=== PATIENT | male | born 1975 | race Caucasian/White ===

== ENCOUNTER 2025-05-26 15:01 | Outpatient (REF) | payer OTHER, SELFPAY ==
[2025-05-26 17:28] LABS: Anion Gap 16 (12-20); Blood Urea Nitrogen 21 mg/dL (9-16); Calcium 9.2 mg/dL (8.4-10.2); Carbon Dioxide 27 mmol/L (22-29); Chloride 104 mmol/L (96-108); Estimated Glomerular Filt Rate > 60; Potassium 3.8 mmol/L (3.3-5.1); Sodium 143 mmol/L (135-145)
== END 2025-05-26 15:02 | disposition home or self-care (01) ==
LOC: HO.LAB 15:01
PROVIDERS: PCP Family Medicine; Visit Provider Registered Nurse
DX: R42 Dizziness and giddiness (principal); G43.909 Migraine, unspecified, not intractable, without status migrainosus; I10 Essential (primary) hypertension; F41.9 Anxiety disorder, unspecified; F32.A Depression, unspecified; Z79.899 Other long term (current) drug therapy
CPT/HCPCS: 36415; 80048; 99202

== ENCOUNTER 2025-05-26 15:01 | Outpatient (AMB) | payer OTHER, SELFPAY ==
--- OUTSIDE RECORDS SUMMARY | 2025-05-26 15:06 | XMS_ITS | Clinical Summary ---
Author Organization [facility] Address [address] [place] [address] Care Team Providers Care Document Imaging Specialist Name Role Phone Art Hurd DO Primary Care Provider Social History Tobacco Use Types Packs/Day Years Used Date Smoking Tobacco: Never Assessed Sex and Gender Information Value Date Recorded Sex Assigned at Not on file Gender Identity Not on file Sexual Orientation Not on file Job Start Date Occupation Industry Not on file Not on file Not on file Plan of Treatment Health Maintenance Due Date Last Done Comments Hepatitis B Vaccines (1 of 3 - 3-dose series) 1975 Hepatitis C Screening 1975 COVID-19 Vaccine (#1) 1975 Depression Screening 1987 Preventative Health Evaluation 1993 DTap / Tdap / Td (1 - Tdap) 1994 Colon Cancer Screening (Colonoscopy) 2020 Shingrix-Zoster Vaccine (1 of 2) 2025 Influenza Vaccine (#1) 2025 11/23/2019 Pneumococcal Vaccine Aged Out No long er eligible based on patient's age to complete this topic RSV Ped < 20 months Aged Out No longe r eligible based on patient's age to complete this topic Care Teams Document Imaging Specialist Relationship Specialty Start Date End Date Art Hurd DO [address] [place] [id number] PCP - General Search Engine Optimization Consultant 02/21/22
--- OUTSIDE RECORDS SUMMARY | 2025-05-26 15:06 | XMS_ITS | Encounter Summary ---
Author Organization [facility] Address [address] [place] [address] Care Team Providers Care Paper Goods Machine Operator Name Role Phone Sadia Bird MD Primary Care Provider Reason for Visit * Reason Onset Date Comments Dizziness 12/29/2024 Encounter Details Date Type Department Care Team (Late st Contact Info) Description 12/29/2024 Nurse Triage Adult Medicine - [place] [address] [place] [phone] Sadia Bird MD [address] [place] [address] Dizziness Social History Tobacco Use Types Packs/Day Years Used Date Smoking Tobacco: Former Smokeless Tobacco: Former Alcohol Use Standard Drinks/Week Comments Yes 0 (1 standard drink = 0.6 oz pur e alcohol) Sex and Gender Information Value Date Recorded Sex Assigned at Not on file Legal Sex Male 1:21 PM EST Gender Identity Not on file Sexual Orientation Not on file documented as of this encounter Progress Notes * Carlos Osman RN - 12/29/2024 2:25 PM EST Reason for Disposition ??? 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 DESCRIPTION: Describe your dizziness. No room spinning mor lightheaded 2. LIGHTHEADED: Do you feel lightheaded? (e.g., somewhat faint, woozy, weak upon standing) Lightheaded upon standing 3. VERTIGO: Do you feel like either you or the room is spinning or tilting? (i.e., vertigo) no 4. SEVERITY: How bad is it? Do you feel like you are going to faint? Can you stand and walk? - MILD: Feels slightly dizzy, but walking normally. - MODERATE: Feels unsteady when walking, but not falling; interferes with normal activities (e.g., school, work). - SEVERE: Unable to walk without falling, or requires assistance to walk without falling; feels like passing out now. mild 5. ONSET: When did the dizziness begin? Few days ago 6. AGGRAVATING FACTORS: Does anything make it worse? (e.g., standing, change in head position) stress 7. HEART RATE: Can you tell me your heart rate? How many beats in 15 seconds? (Note: Not all patients can do this.) unknown 8. CAUSE: What do you think is causing the dizziness? (e.g., decreased fluids or food, diarrhea, emotional distress, heat exposure, new medicine, sudden standing, vomiting; unknown) Stress , pt has a lot of stress at work and also has stopped saboxone 9. RECURRENT SYMPTOM: Have you had dizziness before? If Yes, ask: When was the last time? Whathappened that time? Not reoccurring 10. OTHER SYMPTOMS: Do you have any other symptoms? (e.g., fever, chest pain, vomiting, diarrhea,bleeding) stress 11. : Is there any chance you are ? When was your last menstrual period? male Protocols used: Dizziness - [id number] * Ian Orlando - 12/29/2024 2:01 PM EST Patient call requires triage: Symptoms patient is presenting: dizziness, fatigue, has bees stressed lately, BP today 156/89; at night pulsation in the had; heart beating too fast. Symptoms are more concerning lately. Please advise How long has patient had these symptoms?: had this for couple of months For ALL patients calling to schedule any appointment (routine, sick visit, follow up, consult, etc.) in the outpatient setting please ask the following questions: Do you have fever of higher than 101, sore throat with difficulty swallowing or severe shortness ofbreath? no Third Green Party Information: not applicable PCP: Sadia Bird MD Payor: [facility] / Plan: [facility] MEDICAID / Product Type: *No Product type* / documented in this encounter Plan of Treatment Upcoming Encounters Date Type Department Care Team (Late st Contact Info) Description 06/28/2025 2:30 PM EDT Office Visit Adult Medicine [facility] [address] [place] [address] Lala Manning PA [address] [place] [address] 07/07/2025 3:45 PM EDT Office Visit Pulmonolgy - [place] [facility] [address] [place] [phone] Hugo Grady MD [address] [facility] [address] [place] [address] 08/01/2025 4:15 PM EDT Office Visit General Surgery [facility] [address] [facility] [address] [place] [phone] Perez Austin MD 175 [facility] [address] [place] [address] documented as of this encounter Visit Diagnoses Not on filedocumented in this encounter Care Teams Paper Goods Machine Operator Relationship Specialty Start Date End Date Sadia Bird MD [address] [place] [address] PCP - General 06/24/23 documented as of this encounter
--- NOTE | 2025-05-26 15:37 | A.OFFVIS_ITS ---
Vital Signs 05/26/25 15:50 05/26/25 15:51 BP 154/95 H 150/91 H Position Sitting Standing Pulse 88 93 Intake Visit Reasons: OZUNA with dizziness Allergies No Known Allergies Allergy (Verified 05/26/25 15:40) Medication List - Last Reconciled 05/26/25 by Monika Mccann CNP lisinopril 40 mg PO DAILY pantoprazole 20 mg PO DAILY sertraline (Zoloft) 50 mg PO DAILY HPI Comments Details: 50-year-old man with depression, hypertension, and ALEX (currently not using CPAP), here for headaches and dizziness which started about 1 year ago. Headache was there almost every day, which he described as generalized pressure all over head. Some days were worse than others. He also had dizziness, which he described as a lightheaded, foggy-type feeling. It was worse at times than others, but no specific trigger identified. He noted some ringing in both ears which started around the same time. It was worse at night or when it was quiet. 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 He was under considerable amount of stress related to work. Sleep was up and down. No falls. No history of head trauma. Blood pressure was not well-controlled despite increase in lisinopril dose about 2 months ago. [facility] Family History (Updated 05/26/25 @ 17:07 by Monika Mccann CNP) Mother Hypertension Daughter Seizures Social History (Updated 05/26/25 @ 17:06 by Monika Mccann CNP) Alcohol intake: current Comment: 2x/week Patient Tobacco Use Status: Never used Tobacco Review of Systems Const Denies chills, Denies daytime sleepiness, Reports difficulty sleeping, Reports fatigue, Denies fever(s), Denies frequent falls, Reports headache(s), Denies increased appetite, Denies poor appetite, Denies snoring, Denies weakness, Denies weight gain and Denies weight loss Eyes Denies blurry vision, Denies diplopia and Denies loss of vision ENT Denies vertigo, Reports dizziness, Denies dry mouth, Denies otalgia, Reports headache(s), Denies hearing loss, Denies epistaxis, Denies nasal congestion, Denies neck pain, Denies tinnitus, Denies sinus pain and Denies sore throat Card Denies chest pain at rest, Denies chest pain with activity, Denies syncope, Denies leg edema, Denies palpitations, Denies dyspnea and Denies dyspnea on exertion Resp Denies cough, Denies dyspnea, Denies dyspnea on exertion and Denies snoring GI Denies abdominal pain, Denies constipation, Reports heartburn, Denies diarrhea, Denies nausea and Denies vomiting Denies urinary frequency, Denies urinary incontinence and Denies urinary urgency Musc Denies abnormal gait, Denies back pain, Denies myalgias, Denies arthralgias, Denies neck pain, Denies numbness, Denies stiffness and Denies tingling Skin/Breast Denies breast mass, Denies nipple discharge and Denies rash Neuro Denies abnormal gait, Denies vertigo, Reports dizziness, Denies syncope, Denies frequent falls, Reports headache(s), Denies lack of coordination, Denies loss of vision, Denies memory loss, Denies numbness, Denies Other visual disturbances, Denies restless legs, Denies seizure-like activity, Denies tingling, Denies paresthesias, Denies tremor(s) and Denies weakness Psych Reports anxiety, Reports depression, Denies memory loss, Denies visual hallucinations and Denies hallucinations Endo Denies cold intolerance, Reports fatigue, Denies heat intolerance, Denies polydipsia, Denies polyuria and Denies palpitations Roni/Lymph Reports easy bleeding and Reports easy bruising Physical Exam Const Other: General Appearance:? normal, in no acute distress. Head:? normocephalic, atraumatic. Eyes:? sclera non-icteric, conjunctiva clear. Ears:? auditory canal clear, tympanic membrane intact, clear. Nose:? no lesions. Oral Cavity:? gums normal, mucosa moist, no lesions. Throat:? clear. Neck/Thyroid:? no cervical lymphadenopathy. Skin:? no rashes, no significant birthmarks. Heart:? S1, S2 normal, no murmurs. Lungs:? clear anteriorly and posteriorly. Chest:? no gross rib deformity, clear to auscultation. Extremities:? no edema. Psych:? alert, oriented, cognitive function intact, cooperative with exam. Neuro Other: Mental Status:?Normal attention, orientation, memory and affect.? Cranial Nerves:?Pupils are equal, round and reactive to light. External occular muscles are intact. Visual pisano are full. Face is symmetrical. Facial sensations are normal. Tongue is midline. Palate elevates symmetrically. Shoulder shrugging is normal. Hearing to bedside conversation is normal. Motor Examination:?Normal muscle tone, bulk and strength,?Deep tendon reflexes are 2+,?Plantars are flexor.? Sensory Exam:?....? Coordination:?No ataxia,?no titubation.? Gait Exam: Within normal limits. Cerebellar Signs:?Glalio-xd-ynma and yaxv-hq-sosm is normal.? Extrapyramidal System:?No tremor, rigidity with normal facial expressions.? Pronator Drift:?Slight L pronator drift.? Involuntary Movements:?No tremors seen.? Speech:?Normal.? Assessment & Plan Assessment & Plan (1) Migraine: Code(s): G43.909 - Migraine, unspecified, not intractable, without status migrainosus Category: Medical Qualifiers: Migraine type: unspecified Status migrainosus presence: without status migrainosus Intractability: not intractable Qualified Code(s): G43.909 - Migraine, unspecified, not intractable, without status migrainosus Plan: 50-year-old man with uncontrolled hypertension here with headaches and dizziness for 1 year. Given history of uncontrolled hypertension and physical exam finding of subtle left pronator drift will order MRI brain to r/o underlying pathology. Start propranolol 20mg 1 tablet twice a day, use/side effects reviewed. BMP ordered. (2) Anxiety and depression: Code(s): F41.9 - Anxiety disorder, unspecified; F32.A - Depression, unspecified Category: Medical Plan: Continue sertraline 50mg as prescribed by PCP. Stress management techniques discussed, which may also help with blood pressure. (3) Hypertension: Code(s): I10 - Essential (primary) hypertension Category: Medical Qualifiers: Hypertension type: unspecified Qualified Code(s): I10 - Essential (primary) hypertension Plan: Propranolol may also help with blood pressure some. Plan Exam, findings, and plan reviewed with Dr. Morales. Orders: Orders MR head/brain wo con Today G43.909 - Migraine, unspecified, not intractable, without status migrainosus Basic Metabolic Panel Today G43.909 - Migraine, unspecified, not intractable, without status migrainosus Medications: New propranolol 20 mg PO BID 60 tabs 2RF 30 days Coding Level of Care Code New Pt Level 4 (81452) Diagnoses Migraine without status migrainosus, not intractable, unspecified migraine type G43.909 Migraine type: unspecified Status migrainosus presence: without status migrainosus Intractability: not intractable Anxiety and depression F41.9; F32.A Hypertension, unspecified type I10 Hypertension type: unspecified
[2025-05-26 15:50] VITALS: BP 154/95; PULSE 88
[2025-05-26 15:51] VITALS: BP 150/91; PULSE 93
== END 2025-05-26 16:14 | disposition home or self-care (01) ==
LOC: HO.HSM 15:02
PROVIDERS: PCP Family Medicine; Visit Provider Registered Nurse
DX: G43.909 Migraine, unspecified, not intractable, without status migrainosus (principal); F41.9 Anxiety disorder, unspecified; F32.A Depression, unspecified; I10 Essential (primary) hypertension
CPT/HCPCS: 99204

== ENCOUNTER 2025-06-06 19:52 | Outpatient (REF) | payer OTHER, SELFPAY ==
--- NOTE | ~2025-06-06 | MR_ITS ---
CLINICAL HISTORY: G43.909 - Migraine, unspecified, not intractable, without status migrain... MR brain without IV contrast Comparison: None provided Findings: No abnormal diffusion restriction. No intracranial hemorrhage or extra-axial fluid collection. No intracranial mass, positive mass-effect, midline shift or hydrocephalus. No white matter disease. Normal flow void within the intracranial vessels. Visualized orbits, paranasal sinuses and mastoid air cells are unremarkable. Calvarium and superficial soft tissue are unremarkable. Impression: Normal exam. This document has been electronically signed by: Mayte Azul MD on 06/07/2025 16:13:50
== END 2025-06-06 19:53 | disposition home or self-care (01) ==
LOC: HO.MRI 19:52
PROVIDERS: PCP Family Medicine; Visit Provider Registered Nurse
DX: G43.909 Migraine, unspecified, not intractable, without status migrainosus (principal)
CPT/HCPCS: 70551

== ENCOUNTER → 2025-06-06 19:52 | Outpatient (BNV) | payer OTHER, SELFPAY | PROVIDERS: PCP Family Medicine; Visit Provider Radiology Diagnostic Radiology | DX: G43.909 Migraine, unspecified, not intractable, without status migrainosus (principal) | CPT/HCPCS: 70551 ==

== ENCOUNTER 2025-09-26 11:19 | Outpatient (AMB) | payer OTHER, SELFPAY ==
--- NOTE | 2025-09-26 11:29 | A.OFFVIS_ITS ---
Vital Signs 09/26/25 11:44 09/26/25 11:45 BP 159/96 H 153/96 H Position Sitting Standing Pulse 92 Intake Visit Reasons: Dizziness, Elevated BP Allergies No Known Allergies Allergy (Verified 09/26/25 11:36) Medication List - Last Reconciled 09/26/25 by Monika Mccann CNP hydroxyzine HCl 25 mg PO QID PRN lisinopril 20 mg PO BID pantoprazole 20 mg PO DAILY propranolol 20 mg PO BID 30 days sertraline (Zoloft) 50 mg PO DAILY HPI Comments Details: 50-year-old man with depression, hypertension, and ALEX (currently not using CP AP), here with headaches, dizziness, and ringing in ears that started around 2023. He described feeling of generalized pressure all over head and dizziness which he described as a lightheaded, foggy-type feeling. He had ringing in both ears that was constant, but was worse at night or when it was quiet. 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 Hearing was not so good. He tried meclizine three times a day for about 1 month without change in symptoms. No history of head trauma. He tried propranolol 20mg twice a day for about 1 month, but did not notice any change in symptoms and stopped medication. No change in symptoms. He is most bothered by ongoing dizziness, which he describes again as lightheaded, foggy - type feeling. He has some general pressure all over head that is hard to describe. Dizziness may be worse when changing positions. No falls. He was still having constant ringing in both ears, worse at night when it was quiet. His told him that his hearing was not so good and he was scheduled for hearing test at the end of 10/2025. Blood pressure was not well controlled. He was seen at [facility] at the end of last month for high blood pressure. He was prescribed hydroxyzine which he thought was helping as he was not feeling high pressure as much. He occasionally had some palpitations. He was currently taking lisinopril 20mg twice a day. In the past, he has tried losartan 25mg and triamterene 37.5-HCTZ 25mg for blood pressure which did not help. He has some stress related to work. [facility] Family History (Updated 05/26/25 @ 17:07 by Monika Mccann CNP) Mother Hypertension Daughter Seizures Social History (Updated 05/26/25 @ 17:06 by Monika Mccann CNP) Alcohol intake: current Comment: 2x/week Patient Tobacco Use Status: Never used Tobacco Review of Systems Const Denies chills, Denies daytime sleepiness, Reports difficulty sleeping, Reports fatigue, Denies fever(s), Denies frequent falls, Reports headache(s), Denies increased appetite, Denies poor appetite, Denies snoring, Denies weakness, Denies weight gain and Denies weight loss Eyes Denies blurry vision, Denies diplopia and Denies loss of vision ENT Denies vertigo, Reports dizziness, Reports headache(s) and Denies hearing loss Card Denies chest pain at rest, Denies syncope, Denies leg edema, Reports palpitations and Denies dyspnea Resp Denies cough, Denies dyspnea and Denies snoring GI Denies abdominal pain, Denies constipation, Reports heartburn, Denies diarrhea, Denies nausea and Denies vomiting Denies urinary frequency, Denies urinary incontinence and Denies urinary urgency Musc Denies abnormal gait, Denies numbness and Denies tingling Neuro Denies abnormal gait, Denies vertigo, Reports dizziness, Denies syncope, Denies frequent falls, Reports headache(s), Denies lack of coordination, Denies loss of vision, Denies memory loss, Denies numbness, Denies Other visual disturbances, Denies restless legs, Denies seizure-like activity, Denies tingling, Denies paresthesias, Denies tremor(s) and Denies weakness Psych Reports anxiety, Reports depression, Denies memory loss, Denies visual hallucinations and Denies hallucinations Endo Reports fatigue and Reports palpitations Physical Exam Vital Signs: Last Vital Signs Pulse 92 09/26/25 11:45 BP 153/96 H 09/26/25 11:45 Const Other: General Appearance:? normal, in no acute distress. Skin:? no rashes, no significant birthmarks. Heart:? S1, S2 normal, no murmurs. Lungs:? clear anteriorly and posteriorly. Extremities:? no edema. Psych:? alert, oriented, cognitive function intact, cooperative with exam. Neuro Other: Mental Status:?Normal attention, orientation, memory and affect.? Cranial Nerves:?Pupils are equal, round and reactive to light. External occular muscles are intact. Visual pisano are full. Face is symmetrical. Facial sensations are normal. Tongue is midline. Palate elevates symmetrically. Shoulder shrugging is normal. Hearing to bedside conversation is normal. Sensory Exam:?....? Coordination:?No ataxia,?no titubation.? Gait Exam: Within normal limits. Cerebellar Signs:?Ordjxu-wr-ahul is okay. Extrapyramidal System:?No tremor, rigidity with normal facial expressions.? Pronator Drift:?Slight L pronator drift.? Involuntary Movements:?No tremors seen.? Speech:?Normal.? Results Reviewed Results Reviewed: Laboratory Tests 05/26/25 16:29 Sodium 143 Potassium 3.8 Chloride 104 Carbon Dioxide 27 Anion Gap 16 BUN 21 H Creatinine 1.13 Estimated GFR > 60 Random Glucose 127 H Calcium 9.2 [address] [place] [address] Magnetic Resonance Report Signed Patient: Chad Thompson MR#: [id number] : 1975 Acct:[id number] Age/Sex: 50 / M ADM Date: 06/06/25 Loc: HO.MRI Attending Dr: Monika Mccann CNP Ordering Physician: Monika Mccann CNP Date of Service: 06/06/25 Procedure(s): MR head/brain wo [facility] Accession Number(s): [id number] cc: Monika Mccann CNP; Sadia Bird MD~ CLINICAL HISTORY: G43.909 - Migraine, unspecified, not intractable, without status migrain... MR brain without IV contrast Comparison: None provided Findings: No abnormal diffusion restriction. No intracranial hemorrhage or extra-axial fluid collection. No intracranial mass, positive mass-effect, midline shift or hydrocephalus. No white matter disease. Normal flow void within the intracranial vessels. Visualized orbits, paranasal sinuses and mastoid air cells are unremarkable. Calvarium and superficial soft tissue are unremarkable. Impression: Normal exam. This document has been electronically signed by: Mayte Azul MD on 06/07/2025 16:13:50 Dictated By: Mayte Azul MD Signed By: <Electronically signed by Mayte Azul MD in OV> 06/07/25 1614 Assessment & Plan Assessment & Plan (1) Migraine: Code(s): G43.909 - Migraine, unspecified, not intractable, without status migrainosus Category: Medical Qualifiers: Intractability: not intractable Migraine type: unspecified Status migrainosus presence: without status migrainosus Qualified Code(s): G43.909 - Migraine, unspecified, not intractable, without status migrainosus Plan: Labs and MRI results reviewed. Start verapamil ER 120mg 1 capsule daily, use/side effects reviewed. (2) Dizziness: Code(s): R42 - Dizziness and giddiness Category: Medical Plan: Carotid duplex ordered. 48hr holter ordered. He was scheduled for hearing test in 10/2025 and was asked to have copy of results sent to office. Follow up after testing or sooner as needed. (3) Anxiety and depression: Code(s): F41.9 - Anxiety disorder, unspecified; F32.A - Depression, unspecified Category: Medical Plan: Continue sertraline 50mg as prescribed by PCP. (4) Hypertension: Code(s): I10 - Essential (primary) hypertension Category: Medical Qualifiers: Hypertension type: unspecified Qualified Code(s): I10 - Essential (primary) hypertension Plan: Verapamil may also help with blood pressure. Follow up with PCP for blood pressure management. Orders: Orders US carotid duplex BI Today R42 - Dizziness and giddiness ECG holter monitor 48 hour Today R42 - Dizziness and giddiness Medications: New verapamil ER 120 mg PO DAILY 30 caps 2RF 30 days Coding Level of Care Code Est Pt Level 4 (82295) Diagnoses Migraine without status migrainosus, not intractable, unspecified migraine type G43.909 Intractability: not intractable Migraine type: unspecified Status migrainosus presence: without status migrainosus Dizziness R42 Anxiety and depression F41.9; F32.A Hypertension, unspecified type I10 Hypertension type: unspecified
[2025-09-26 11:44] VITALS: BP 159/96
[2025-09-26 11:45] VITALS: BP 153/96; PULSE 92
--- OUTSIDE RECORDS SUMMARY | 2025-09-26 13:30 | XMS_ITS | Encounter Summary ---
Author Organization [facility] Address [address] [place] [address] Care Team Providers Care Hatch Supervisor Name Role Phone Sadia Bird MD Primary Care Provider Reason for Referral * Consultation (Routine) - Pending Review Specialty Diagnoses / Procedures Referred By Louise t Referred To Contact Otolaryngology Diagnoses Tinnitus, unspecified laterality Dizziness Sadia Bird MD [address] [place] [address] Phone: tel: fax: [facility] [address] [place] [address] Phone: tel: fax: Referral ID Status Reason Start Date Expiration Date Visits Requested Visits Authorized [id number] Pending Review Specialty Services Required 09/26/2025 09/26/2026 3 3 Reason for Visit * Reason Comments Hypertension Follow-up Hospitalization/ER Encounter Details Date Type Department Care Team (Late st Contact Info) Description 09/26/2025 1:30 PM EST Office Visit Adult Medicine [address] [phone] Sadia Bird MD [address] [place], [place] Primary hypertension (Primary Dx); Tinnitus, unspecified laterality; Anxiety and depression; Dizziness Social History Tobacco Use Types Packs/Day Years Used Date Smoking Tobacco: Former Smokeless Tobacco: Former Tobacco Cessation:Counseling Given: Not Answered Comments:zyins Alcohol Use Standard Drinks/Week Comments Yes 0 (1 standard drink = 0.6 oz pur e alcohol) social Interpersonal Safety Answer Date Record ed Physical Abuse Unrecognized value 04/26/2025 Verbal Abuse Unrecognized value 04/26/2025 Sex and Gender Information Value Date Recorded Sex Assigned at Not on file Legal Sex Male 1:21 PM EST Gender Identity Not on file Sexual Orientation Not on file documented as of this encounter Last Filed Vital Signs Vital Sign Reading Time Taken Comments Blood Pressure 136/82 09/26/2025 1:41 PM EST Pulse 93 09/26/2025 1:41 PM EST Temperature 36.1 C (96.9 F) 09/26/2025 1:41 PM EST Respiratory Rate 16 09/26/2025 1:41 PM EST Oxygen Saturation - - Inhaled Oxygen Concentration - - Weight 90.7 kg (200 lb) 09/26/2025 1:41 PM EST Height 178 cm (5' 10.08 ) 09/26/2025 1:41 PM EST Body Mass Index 28.63 09/26/2025 1:41 PM EST documented in this encounter Progress Notes * Sadia Bird MD - 09/26/2025 1:30 PM EST CHIEF COMPLAINT: Hypertension, Follow-up, and Hospitalization/ER IDENTIFIER: Chad Thompson is a 50 y.o. old male. HPI: Sabrina is here today for a fu. 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 Was seen at [facility] ER for anxiety/ elevated BP. Was given atarax and met with crisis counsellor. Tells me the atarax has been helpful. Looking into establishing with psychiatrist. Has been off suboxone 10 months. HTN- BP is well controlled. taking lisinopril 40mg daily. Tells me the maxide did not help control his BP and hence stopped the medication, Chronic GERD- saw GI, had EGD in April 2025. Repeat in 3yrs. Continues to take pantoprazole. Reports he has diarrhea off/on. Taking imodium as needed. Chronic anxiety/depression /dizzines- and brain fog symptoms( persistent). Met with the neurologisttoday and currently taking zoloft 100mg daily.Had MRI brain that was negative Today their office prescribed verapamil 120mg. The neurologist ordered holter monitor. Still having tinnitus- getting hearing eval in . I will also refer him to ENT. ALEX-fby . Consumes 2 beers/week. ROS: GENERAL: No malaise, significant weight loss or fever NECK: No lumps, goiter, pain or significant neck swelling RESPIRATORY: No cough, wheezing or shortness of breath CARDIOVASCULAR: No chest pain, leg swelling or palpitations GI: No constipation/diarrhea. No abdominal discomfort, blood in stools or black stools : No dysuria, frequency or incontinence MUSCULOSKELETAL: No joint pain or swelling, back pain, or muscle pain. NEURO: No persistent headache, syncope, seizures, weakness or numbness The remainder of review of systems is noncontributory. PAST MEDICAL HISTORY: Patient Active Problem List Diagnosis Date Noted IFG (impaired fasting glucose) 05/16/2025 Drug dependence, in remission ([facility] V24, [facility] V28) 08/21/2021 Obstructive sleep apnea 06/06/2021 History of COVID-19 06/06/2021 VANGIE (generalized anxiety disorder) 02/14/2020 Moderate major depression ([facility] V24, [facility] V28) 02/14/2020 Hypertriglyceridemia 12/23/2019 Depression 11/13/2019 Substance abuse in remission ([facility] V24, [facility] V28) 11/24/2017 SSBE (short-segment Moran's esophagus) 11/20/2017 SOCIAL HISTORY: Social History Tobacco Use Smoking status: Former Smokeless tobacco: Former Tobacco comments: francesns Substance Use Topics Alcohol use: Yes Comment: social FAMILY HISTORY: Family Status Relation Name Status Mother Alive Father Alive MGM (Not Specified) PGM (Not Specified) No partnership data on file Family History[1] ACTIVE MEDICATIONS: Medications Taking[2] ALLERGIES: Patient has no known allergies. PHYSICAL EXAM: Blood pressure 136/82, pulse 93, temperature 36.1 ??C (96.9 ??F), temperature source Temporal, resp. rate 16, height 1.78 m (70.08 ), weight 90.7 kg (200 lb). Body mass index is 28.63 kg/m??. BMI is greater than 25.0 (above the normal range) - see Plan APPEARANCE: Alert and in no acute distress HEART: RRR with normal S1 and S2, no murmurs LUNG: Clear to auscultation bilaterally. No accessory muscle use. No wheeze or crackles EXTREMITIES: Extremities warm and well perfused without clubbing, cyanosis, or edema GAIT: Normal NEURO: Alert and oriented x 3. No focal deficits IMPRESSION: 1. Primary hypertension 2. Tinnitus, unspecified laterality 3. Anxiety and depression 4. Dizziness PLAN: Blood pressure well-controlled on lisinopril 40mg daily. Keep appt with audiology next month. Refer to ENT entered. I do not think he will benefit from holter monitoring( has been ordered by neuro). Not sure why they plan on starting him on verapamil- will wait to review their consult note. Ok to take atarax prn for anxiety. C/w zoloft 100mg daily. Fu in 4months or sooner as needed. Orders Placed This Encounter Procedures Ambulatory referral to ENT Standing Status: Future Expected Date: 09/26/2025 Expiration Date: 09/26/2026 Referral Priority: Routine Referral Type: Consultation Referral Reason: Specialty Services Required [facility] Requested Specialty: Otolaryngology Number of Visits Requested: 3 Sadia Bird MD on 09/26/2025 at 2:09 PM EST [1] Family History Problem Relation Name Age of Onset Hypertension Mother Other cancer Father non hodgkins lymphoma, depression/anxiety Colon cancer Maternal Grandmother Colon cancer Paternal Grandmother [2] Outpatient Medications Marked as Taking for the 09/26/25 encounter (Office Visit) with Sadia Bird MD Medication Sig Dispense Refill hydrOXYzine HCL (ATARAX) 25 mg tablet Take 1 tablet (25 mg total) by mouth 4 (four) times a day if needed for anxiety. lisinopriL (PRINIVIL,ZESTRIL) 20 mg tablet Take 2 tablets (40 mg total) by mouth 1 (one) time each day. pantoprazole (PROTONIX) 40 mg EC tablet Take 1 tablet (40 mg total) by mouth 1 (one) time each day before breakfast. Do not crush, chew, or split. 90 each 3 sertraline (ZOLOFT) 50 mg tablet Take 2 tablets (100 mg total) by mouth 1 (one) time each day. 180 each 1 [DISCONTINUED] triamterene-hydroCHLOROthiazide (MAXZIDE-25) 37.5-25 mg per tablet Take 2 tablets bymouth 1 (one) time each day. 180 each 1 documented in this encounter Plan of Treatment Upcoming Encounters Date Type Department Care Team (Late st Contact Info) Description 01/25/2026 2:30 PM EDT Office Visit Adult Medicine - [address] [phone] Andry Ramirez PA [address] [place] [address] Scheduled Referrals Name Type Priority Associated Diagnoses Orde r Schedule Ambulatory referral to ENT Outpatient Referral Routine Tinnitus, unspecified laterality Dizziness Expected: 09/26/2025 (Approximate), Expires: 09/26/2026 documented as of this encounter Visit Diagnoses Diagnosis Primary hypertension- Primary Unspecified essential hypertension Tinnitus, unspecified laterality Anxiety and depression Dizziness Dizziness and giddiness documented in this encounter Discontinued Medications Medication Sig Discontinue Reason Start Date End Da te meclizine (ANTIVERT) 25 mg tablet Take 1 tablet (25 mg total) by mouth 3 (three) times a day if needed for dizziness. Therapy completed 06/24/2025 09/26/2025 triamterene-hydroCHLOROt hiazide (MAXZIDE-25) 37.5-25 mg per tabletIndications:Primar y hypertension,Tinnitus, unspecified laterality Take 2 tablets by mouth 1 (one) time each day. Therapy completed 09/16/2025 09/26/2025 documented as of this encounter Historical Medications * This list may reflect changes made after this encounter. hydrOXYzine HCL (ATARAX) 25 mg tablet Take 1 tablet (25 mg total) by mouth 4 (four) times a day if needed for anxiety. 09/21/2025 added in this encounter Care Teams Hatch Supervisor Relationship Specialty Start Date End Date Sadia Bird MD [address] [place] [phone] PCP - General 06/24/23 documented as of this encounter
--- OUTSIDE RECORDS SUMMARY | 2025-09-26 14:52 | XMS_ITS | Clinical Summary ---
Author Organization [employer] [facility] Address [address] [place] [address] Care Team Providers Care Garbage Pick Up Man Name Role Phone Art Hurd DO Primary [...] age to complete this topic Care Teams Garbage Pick Up Man Relationship Specialty Start Date End Date Art Hurd DO [address] [place] [phone] PCP - General Sea Foam Kiss Maker 02/21/22
--- OUTSIDE RECORDS SUMMARY | 2025-09-26 14:52 | XMS_ITS | Clinical Summary ---
Author Organization [facility] Address [address] [place] [address] Phone Care Team Providers Care Retail Pos Specialist Name Role Phone Sadia Bird MD Primary Care Provider Allergies No known active allergies Medications pantoprazole (PROTONIX) 40 mg EC tabletIndication s:Moran's esophagus without dysplasia Take 1 tablet (40 mg total) by mouth 1 (one) time each day before breakfast. Do not crush, chew, or split. 90 each 3 02/18/20 25 026 Active lisinopriL (PRINIVIL,ZESTRI L) 20 mg tablet Take 2 tablets (40 mg total) by mouth 1 (one) time each day. 09/12/20 25 Active sertraline (ZOLOFT) 50 mg tablet Take 2 tablets (100 mg total) by mouth 1 (one) time each day. 180 each 1 09/16/20 25 026 Active hydrOXYzine HCL (ATARAX) 25 mg tablet Take 1 tablet (25 mg total) by mouth 4 (four) times a day if needed for anxiety. 09/21/20 25 Active meclizine (ANTIVERT) 25 mg tablet Take 1 tablet (25 mg total) by mouth 3 (three) times a day if needed for dizziness. 30 tablet 1 06/24/20 25 025 Discontinued(Th erapy completed) sertraline (ZOLOFT) 50 mg tablet TAKE 1 & 1/2 TABLETS BY MOUTH DAILY 135 tablet 07/13/20 25 025 Discontinued lisinopriL (PRINIVIL,ZESTRI L) 20 mg tabletIndication s:Routine general medical examination at a health care facility,Primary hypertension Take 1 tablet (20 mg total) by mouth 2 (two) times a day. 180 tablet 2 08/01/20 25 025 Discontinued(Th erapy completed) triamterene-hydr oCHLOROthiazide (MAXZIDE-25) 37.5-25 mg per tabletIndication s:Primary hypertension,Tin nitus, unspecified laterality Take 1 tablet by mouth 1 (one) time each day. 30 each 5 09/05/20 25 025 Discontinued propranoloL (INDERAL) 20 mg tablet Take 1 tablet (20 mg total) by mouth 2 (two) times a day. for 30 days 08/22/20 25 025 Discontinued triamterene-hydr oCHLOROthiazide (MAXZIDE-25) 37.5-25 mg per tabletIndication s:Primary hypertension,Tin nitus, unspecified laterality Take 2 tablets by mouth 1 (one) time each day. 180 each 1 09/16/20 25 025 Discontinued(Th erapy completed) Active Problems Problem Noted Date Diagnosed Date IFG (impaired fasting glucose) 05/16/2025 Drug dependence, in remission ([facility] V24, [facility] V28) 08/21/2021 Obstructive sleep apnea 06/06/2021 History of COVID-19 06/06/2021 Overview (09/15/2025): December 2020 VANGIE (generalized anxiety disorder) 02/14/2020 Moderate major depression ([facility] V24, [facility] V28) 02/14/2020 Hypertriglyceridemia 12/23/2019 Depression 11/13/2019 Substance abuse in remission ([facility] V24, [facility] V28) 11/24/2017 Overview (10/08/2024): Opiates SSBE (short-segment Moran's esophagus) 018 Overview (10/08/2024): 02/10/2020: Biopsies of irregular Z line = short segment Moran's esophagus, no dysplasia. Consider endoscopy again in 2024. Resolved Problems Problem Noted Date Diagnosed Date Resolved Date Substance use disorder 05/03/202101/12 Overview (10/08/2024): On suboxone Encounters Date Type Department Care Team Description 09/26/2025 1:30 PM EST Office Visit Adult [address] [phone] Sadia Bird MD Primary hypertension (Primary Dx); Tinnitus, unspecified laterality; Anxiety and depression; Dizziness 09/21/2025 Telephone Pulmonology [address] [phone] Hugo Grady MD 09/21/[address] [phone] Sadia Bird MD 09/16/2025 10:00 AM EST Office Visit Adult [address] [phone] Ursula Chapman NP Moderate major depression (CMS/HCC V24, CMS/HCC V28) (Primary Dx); Anxiety and depression; Primary hypertension; Tinnitus, unspecified laterality 09/15/2025 3:45 PM EST [facility] [address] [phone] Hugo Grady MD Obstructive sleep apnea (Primary Dx); Primary hypertension 09/15/2025 Telephone Adult [address] [phone] Sadia Bird MD 09/05/[address] [phone] Sadia Bird MD 08/29/2025 Telephone Pulmonology [facility] [address] [phone] Hugo Grady MD 08/03/2025 Telephone [address] [phone] Alison Turcios [place] 08/02/2025 [facility] [address] [phone] Hugo Grady MD 08/01/2025 10:30 AM EDT Office Visit Adult Medicine [address] [phone] Sadia Bird MD Routine general medical examination at a health care facility (Primary Dx); Primary hypertension; Tinnitus, unspecified laterality; Obstructive sleep apnea; Dizziness; Anxiety and depression 07/20/2025 [facility] [address] [phone] Alison Turcios [place] 07/14/2025 3:15 PM EDT Office Visit Pulmonology [address] [phone] Hugo Grady MD Obstructive sleep apnea (Primary Dx) from Last 3 Months Immunizations Immunization Administration Dates Next Due Influenza Quadravalent, MDCK , 0.5ml, preservative free (Flucelvax) 6mo and older 07/08/2023,11/23/2019 Td Tetanus diptheria (Tdvax) 7yo and older 11/23 Surgical History Surgery Date Site/Laterality Comments BACK SURGERY PROCEDURE: HISTORICAL BACK SURGERY; COMMENT: 5 years back- l4- l5 WISDOM TOOTH EXTRACTION PROCEDURE: HISTORICAL WISDOM TEETH EXTRACTION UPPER GASTROINTESTINAL ENDOSCOPY 02/10/2020 PROCEDURE: UPPER GI ENDOSCOPY/EXAM; COMMENT: Jered; Moran's without dysplasia, gastric and duodenal biopsies normal. COLONOSCOPY 03/03/2020 PROCEDURE: HISTORICAL COLONOSCOPY; COMMENT: Normal examination. Medical History Medical History Date Comments History of back surgery DX:Histo ry of back surgery; COMMENT: l4- L5 disc ruptured SSBE (short-segment Moran's esophagus) 11/20/19 DX:SSBE (short-segment Moran's esophagus) Substance use disorder 05/03/2021 DX:Substa nce use disorder; COMMENT: On suboxone Obstructive sleep apnea 06/06/2021 DX:Obstr uctive sleep apnea History of COVID-19 06/06/2021 DX:History o f COVID-19; COMMENT: December 2020 Depression 11/13/2019 DX:Depression VANGIE (generalized anxiety disorder) 02/14/2020 DX:VANGIE (generalized anxiety disorder) Hypertriglyceridemia 12/23/2019 DX:Hypertri glyceridemia Moderate major depression (C MO/HCC V24, CMS/HCC V28) 02/14/2020 DX:Moderate major depression (HCC) Substance abuse in remission (CMS/HCC V24, CMS/HCC V28) 11/24/2017 DX:Substance abuse in remiss ion (HCC); COMMENT: Opiates Hypertension Family History Medical History Relation Name Comments Other cancer Father non hodgkins ly mphoma, depression/anxiety Colon cancer Maternal Grandmother Hypertension Mother Colon cancer Paternal Grandmother Relation Name Status Comments Father Alive Maternal Grandmother Mother Alive Paternal Grandmother Social History Tobacco Use Types Packs/Day Years [...] on file Sexual Orientation Not on file Obstetrics History Last Filed Vital Signs Vital Sign Reading Time Taken Comments Blood Pressure 136/82 09/26/2025 1:41 PM EST Pulse 93 09/26/2025 1:41 PM EST Temperature 36.1 C (96.9 F) 09/26/2025 1:41 PM EST Respiratory Rate 16 09/26/2025 1:41 PM EST Oxygen Saturation 100% 09/15/2025 3:59 PM EST Inhaled Oxygen Concentration - - Weight 90.7 kg (200 lb) 09/26/2025 1:41 PM EST Height 178 cm (5' 10.08 ) 09/26/2025 1:41 PM EST Body Mass Index 28.63 09/26/2025 1:41 PM EST Plan of Treatment Upcoming Encounters Date Type Department Care Team (Late st Contact Info) Description 01/25/2026 2:30 PM EDT Office Visit Adult Medicine - [place] [address] [place] [phone] Andry Ramirez PA [address] [place] [address] Health Maintenance Due Date Last Done Comments Hepatitis A Vaccines (1 of 2 - Risk 2-dose series) 1994 Hepatitis B Vaccines (1 of 3 - 19+ 3-dose series) 1994 HIV Screening 10/04/2022 Hepatitis C Screening 10/04/2022 Social Influencers of Health Screening 10/04/2022 Depression Screening 10/27/2024 Pneumococcal Vaccine: 50+ Years (1 of 1 - PCV) 2025 Zoster Vaccines (1 of 2) 2025 COVID-19 Vaccine (1 - 2024-2 6 season) 2025 Hypertension/CHF/CAD Annual BMP Blood Test 05/13/2026 05/13/2025, 01/03/2025, 07/09/2023 DTaP,Tdap,and Td Vaccines (2 - Td or Tdap) 11/23/2029 11/23/2019 Cholesterol Screening (Lipid Panel) 01/03/2030 01/03/2025, 07/09/2023 Colorectal Cancer Screening: Colonoscopy 02/13/2032 02/12/2022 RSV Immunization Adult Patients (1 - 1-dose 75+ series) 2050 Influenza Vaccine Discontinued 07/08/2023, 11/23/2019 HIB Vaccines Aged Out No longer eligi ble based on patient's age to complete this topic HPV Vaccines Aged Out No longer eligi ble based on patient's age to complete this topic IPV Vaccines Aged Out No longer eligi ble based on patient's age to complete this topic MMR Vaccines Aged Out No longer eligi ble based on patient's age to complete this topic Meningococcal ACWY Vaccine Aged Out N o longer eligible based on patient's age to complete this topic Meningococcal B Vaccine Aged Out No l onger eligible based on patient's age to complete this topic RSV Immunization Patients Under 20 months Aged Out No longer eligible based on patient's age to complete this topic Varicella Vaccines Aged Out No longer eligible based on patient's age to complete this topic Procedures Procedure Name Priority Date/Time Associated Diagnosis Comments HOME SLEEP TEST Routine 07/08/2025 9:47 AM EDT Obstructive sleep apnea BASIC METABOLIC PANEL Routine 05/13/2025 9:25 AM EDT Primary hypertension LIPID PANEL WITH REFLEX TO DIRECT LDL Routine 01/03/2025 10:05 AM EDT Hypertriglyceridemia EXTERNAL COLONOSCOPY REPORT Routine 02/12/2022 5:16 PM EDT from Last 3 Months or Most Recently Relevant to Health Maintenance Results * Home sleep test (07/08/2025 9:47 AM EDT) us Hugo Grady MD [facility] ORDERABLES Vicky talley Result * (ABNORMAL) Basic metabolic panel (05/13/2025 9:25 AM EDT) Sodium 137 133 - 145 mmol/L LAB CHEMISTRY METHOD 05/13/2025 12:06 PM [facility] Potassium 4.2 3.5 - 5.5 mmol/L LAB CHEMISTRY METHOD 05/13/2025 12:06 PM [facility] Chloride 104 96 - 110 mmol/L LAB CHEMISTRY METHOD 05/13/2025 12:06 PM [facility] CO2 29 21 - 32 mmol/L LAB CHEMISTRY METHOD 05/13/2025 12:06 PM [facility] Anion Gap 4 3 - 11 LAB CHEMISTRY METHOD 05/13/2025 12:06 PM [facility] Glucose 158(H) 70 - 100 mg/dL LAB CHEMISTRY METHOD 05/13/2025 12:06 PM [facility] BUN 18 5 - 25 mg/dL LAB CHEMISTRY METHOD 05/13/2025 12:06 PM [facility] Creatinine 1.20 0.70 - 1.30 mg/dL LAB CHEMISTRY METHOD 05/13/2025 12:06 PM [facility] eGFR 74 >=60 mL/min/1. 73m2 LAB CHEMISTRY METHOD 05/13/2025 12:06 PM EDT [facility] Comment:Calculation based on the Chronic Kidney Disease Epidemiology Collaboration (CKD-EPI) equation refit without adjustment for race. BUN/Creatinine Ratio 15.0 LAB CHEMISTRY METHOD 05/13/2025 12:06 PM EDT [facility] Calcium 9.1 8.5 - 10.5 mg/dL LAB CHEMISTRY METHOD 05/13/2025 12:06 PM EDT [facility] Blood Venous blood specimen / Unknown Venipuncture / Unknown 05/13/2025 9:25 AM EDT 05/13/2025 9:25 AM EDT us Lala CALZADA LAB BLOOD ORDERABLES Final Result [facility] [address] [place] [address], [place] [phone] * (ABNORMAL) Lipid panel with reflex to direct LDL (01/03/2025 10:05 AM EDT) Cholesterol 188 0 - 200 mg/dL LAB CHEMISTRY METHOD 01/03/2025 12:57 PM [facility] Triglycerides 229(H) 0 - 150 mg/dL LAB CHEMISTRY METHOD 01/03/2025 12:57 PM [facility] HDL 46 >=40 mg/dL LAB CHEMISTRY METHOD 01/03/2025 12:57 PM T [facility] LDL Calculated 96 0 - 100 mg/dL LAB CHEMISTRY METHOD 01/03/2025 12:57 PM T [facility] VLDL Cholesterol Flavio 45.8 mg/dL LAB CHEMISTRY METHOD 01/03/2025 12:57 PM [facility] Non HDL Chol. (LDL+VLDL) 142 <145 mg/dL LAB CHEMISTRY METHOD 01/03/2025 12:57 PM [facility] Chol/HDL Ratio 4.1 0.0 - 4.4 LAB CHEMISTRY METHOD 01/03/2025 12:57 PM EDT [facility] Blood Venous blood specimen / Unknown Venipuncture / Unknown 01/03/2025 10:05 AM EDT 01/03/2025 10:05 AM EDT Jaime CALZADA LAB BLOOD ORDERABLES Final Res ult [facility] [address] [place] [address], [place] [phone] * External Colonoscopy Report (02/12/2022 5:16 PM EDT) Anatomical Region Laterality Modality Endoscopy Historical Provider GI~PROCEDURE ORDERABLES F inal Result from Last 3 Months or Most Recently Relevant to Health Maintenance Insurance [facility] [employer] Care Teams Retail Pos Specialist Relationship Specialty Start Date End Date Sadia Bird MD [address] [place] [phone] PCP - General 06/24/23
--- OUTSIDE RECORDS SUMMARY | 2025-09-26 14:52 | XMS_ITS | Encounter Summary ---
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 male Protocols used: Dizziness - [id number] * Ian Orlando - 12/29/2024 2:01 PM [...] swallowing or severe shortness ofbreath? no Third Libertarian Information: not applicable PCP: Sadia Bird MD Payor: [facility] PLAN / Plan: [employer] / Product Type: *No Product type* / documented in this encounter Plan of Treatment Upcoming Encounters Date Type Department Care Team (Late st Contact Info) Description 01/25/2026 2:30 PM EDT Office Visit Adult Medicine - [place] [address] [place] [phone] Andry Ramirez PA [address] [place] [address] documented as of this encounter Visit Diagnoses Not on filedocumented in this encounter Care Teams Pullman Clerk Relationship Specialty Start Date End Date Sadia Bird MD [address] [place] [address] PCP - General 06/24/23 documented as of this encounter
--- OUTSIDE RECORDS SUMMARY | 2025-09-26 14:52 | XMS_ITS | Encounter Summary ---
Author Organization [facility] Address [address] [place] [address] Care Team Providers Care Pacs Administrator Name Role Phone Sadia Bird MD Primary Care Provider Reason for Visit * Reason Onset Date Comments dme request 09/21/2025 Encounter Details Date Type Department Care Team ([facility] st Contact Info) Description 09/21/2025 Telephone Pulmonology - [address] [place] [address] Hugo Grady MD [address] [place] [phone] Social History Tobacco Use Types Packs/Day Years Used Date Smoking Tobacco: Former Smokeless Tobacco: Former Comments:zyins Alcohol Use Standard Drinks/Week Comments Yes [...] as of this encounter Progress Notes * Erum Salinas MA - 09/21/2025 2:28 PM EST Printed for signature * Hina Matias - 09/21/2025 1:43 PM EST [employer] fax received for initial order Attached to encounter Nov Recall list (1 yr ) documented in this encounter Plan of Treatment Upcoming Encounters Date Type Department Care Team (Late st Contact Info) Description 01/25/2026 2:30 PM EDT Office Visit Adult Medicine - [place] [address] [place] [address] Andry Ramirez PA [address] [place] [address] documented as of this encounter Visit Diagnoses Not on filedocumented in this encounter Care Teams Pacs Administrator Relationship Specialty Start Date End Date Sadia Bird MD [address] [place] [address] PCP - General 06/24/23 documented as of this encounter
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
== END 2025-09-26 11:57 | disposition home or self-care (01) ==
LOC: HO.HSM 11:20
PROVIDERS: PCP Family Medicine; Visit Provider Registered Nurse
DX: G43.909 Migraine, unspecified, not intractable, without status migrainosus (principal); R42 Dizziness and giddiness; F41.9 Anxiety disorder, unspecified; F32.A Depression, unspecified; I10 Essential (primary) hypertension
CPT/HCPCS: 99214

== ENCOUNTER → 2025-09-26 11:19 | Outpatient (BNVA) | payer OTHER, SELFPAY | PROVIDERS: PCP Family Medicine; Visit Provider Registered Nurse | DX: G43.909 Migraine, unspecified, not intractable, without status migrainosus (principal); R42 Dizziness and giddiness; F41.9 Anxiety disorder, unspecified; F32.A Depression, unspecified; I10 Essential (primary) hypertension; Z79.899 Other long term (current) drug therapy | CPT/HCPCS: 99212 ==